=== PATIENT | female | born 1980 | race Caucasian/White ===

== ENCOUNTER → 2019-02-14 | Outpatient (CLI) | payer OTHER ==
--- NOTE | 2019-02-14 17:07 | PCVCIMAG ---
APPROVED REPORT Study performed: 02/14/2019 14:49:04 Exam: Stress Echocardiogram Indication: Chest pain , Palpitations , Dyspnea Patient Location: Echo lab Stress Nurse: Sushma Cannon RN Status: routine Ht: 5 ft 5 in HR: 82 bpm BP: 124/90 mmHg Rhythm: NSR Procedure The patient underwent an Exercise Stress Test using the Derrick Protocol. Blood pressure, heart rate, and EKG were monitored. An Echocardiogram was performed by weatherseal technician in four stages in quad fashion. At peak stress, four selected images were obtained and placed side by side with resting images for comparison. Stress Test Details Stress Test: Exercise stress testing was performed using a Derrick protocol. HR Resting HR: 82 bpmMax Heart Rate (APMHR): 181 bpm Max HR Achieved: 171 bpmTarget HR (85% APMHR): 153 bpm % of APMHR: 94 Recovery HR: 94 bpm HR response to stress: Normal HR response to stress BP Resting BP: 124/90 mmHg Max BP: 174/86 mmHg Recovery BP: 132/76 mmHg BP response to stress: Normal blood pressure response to stress. ECG Resting ECG: Sinus Rhythm Stress ECG: Sinus Rhythm ST Change: inferior upsloping ST depression Maximum ST Deviation: -2.35 mm Arrhythmia: None Recovery ECG: Sinus Rhythm Recovery ST Change: Normal Recovery Arrhythmia: None Clinical Reason for Termination: Maximal effort, Dyspnea Stress Symptoms: chest pain at maximum exertion that resolved immediately in recovery, dyspnea Exercise duration: 7 min 40 sec Highest Stage Achieved: Stage 3: 3.4 mph at 14% grade. Exercise capacity: 10.1 METs Overall Exercise Capacity for Age: Normal Scale: Active Angina Score: Non-Limiting Stress ECG Conclusion Owen Treadmill Score is 14.8 which is Low risk. Pre-Stress Echo The resting Echocardiogram showed normal left ventricular contractility with an estimated Ejection Fraction of about 50-55%. Normal wall motion in all segments on baseline images. Post-Stress Echo The stress Echocardiogram showed abnormalnormal left ventricular contractility with an estimated Ejection Fraction of about 60-65%. Normal augmentation of wall motion in all segments on post stress images. Clinical No clinical or ECG evidence for ischemia. Equivocal upsloping inferior ST changes. Conclusion Clinical Response: Equivocal Exercise Capacity: Average Stress ECG Response: Equivocal Stress Echo Images: Non-ischemic The left ventricle is normal in size and wall thickness in both the rest and stress images. Other Information Study Quality: Adequate <Conclusion> The left ventricle is normal in size and wall thickness in both the rest and stress images.
== END | disposition home or self-care (01) ==
LOC: PCVCIMAG 15:28
PROVIDERS: ATTEND Internal Medicine Cardiovascular Disease
DX: R00.2 Palpitations (principal); R07.9 Chest pain, unspecified; R06.00 Dyspnea, unspecified
CPT/HCPCS: 93325; 93351